=== PATIENT | male | born 1945 | race American Indian/Alaskan Native ===

== ENCOUNTER 2021-11-27 23:18 | Emergency (ER) | payer OTHER, MEDICARE ==
[2021-11-27 23:24] VITALS: BP 137/71
[2021-11-28] MEDS ORDERED: KETOROLAC 10 MG TAB PO ONE (04:58)
[2021-11-28] MEDS ORDERED: CYCLOBENZAPRINE 10 MG TAB PO ONE (04:58)
[2021-11-28] MEDS ORDERED: ACETAMINOPHEN W/CODEINE 300-30 MG TAB PO ONE (04:59)
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
== END 2021-11-28 06:12 | disposition home or self-care (01) ==
LOC: ED 23:18
DX: M54.50 Low back pain, unspecified (principal); M25.511 Pain in right shoulder; Z79.899 Other long term (current) drug therapy; V87.7XXA Person injured in collision between other specified motor vehicles (traffic), initial encounter; Y93.89 Activity, other specified; Y92.488 Other paved roadways as the place of occurrence of the external cause; Y99.8 Other external cause status
CPT/HCPCS: 99282